=== PATIENT | male | born 1945 | race Caucasian/White ===

== ENCOUNTER 2019-05-13 16:49 | Emergency (ER) | payer OTHER, MEDICARE ==
[~2019-05-13] VITALS: Ht 180.3 cm; Wt 95.2 kg
[~2019-05-13 16:49] MED LIST: ASPI325; ASPI81EC PO; CEPH500 PO; FINA5 PO; LEVFLO500 PO; NITRO QUIK SL; RED YEAST RICE PO; UNKNOWN BP MED; [UNRECOGNIZED DRUG - CODE]
== END 2019-05-13 19:15 | disposition home or self-care (01) ==
LOC: ER 16:49
DX: S16.1XXA Strain of muscle, fascia and tendon at neck level, initial encounter (principal); S29.012A Strain of muscle and tendon of back wall of thorax, initial encounter; Z79.899 Other long term (current) drug therapy; Z79.82 Long term (current) use of aspirin; W11.XXXA Fall on and from ladder, initial encounter
CPT/HCPCS: 71046; 72040; 96374; 99283-25; J1885

== ENCOUNTER 2020-08-11 16:14 | Emergency (ER) | payer OTHER, MEDICARE ==
[~2020-08-11] VITALS: Ht 182.9 cm; Wt 95.2 kg
[2020-08-11 18:24] LABS: BASOPHILS ABSOLUTE AUTO 0.07 K/mm3 (0.00-0.23); BASOPHILS PERCENT AUTO 1 % (0-2); EOSINOPHILS PERCENT AUTO 1 % (0-6); Hematocrit 41.9 % (37.0-53.0); Hemoglobin 14.4 g/dL (13.5-17.5); IMMATURE GRAN ABSOLUTE AUTO 0.16 K/mm3 (0.00-0.10); IMMATURE GRAN PERCENT AUTO 1 % (0-1); LYMPHOCYTES ABSOLUTE AUTO 0.69 K/mm3 (0.84-5.20); LYMPHOCYTES PERCENT AUTO 5 % (21-46); MONOCYTES ABSOLUTE AUTO 0.81 K/mm3 (0.16-1.47); MONOCYTES PERCENT AUTO 6 % (4-13); Mean Corpuscular HGB 31.4 pg (26.0-34.0); Mean Corpuscular HGB Conc 34.4 g/dL (31.5-36.5); Mean Corpuscular Volume 91 fL (80-100); Mean Platelet Volume 10.2 fL (9.1-12.4); NEUTROPHILS ABSOLUTE AUTO 11.96 K/mm3 (1.96-9.15); NEUTROPHILS PERCENT AUTO 87 % (41-73); Platelet Count 217 K/mm3 (150-400); RDW Coefficient Variation 13.2 % (11.7-14.2); RDW Standard Deviation 43.8 fL (35.1-46.3); Red Blood Cell Count 4.59 M/mm3 (4.30-5.90); White Blood Cell Count 13.79 K/mm3 (4.00-11.30)
[2020-08-11 18:35] LABS: Source, Urine Clean Catch
[2020-08-11 18:38] LABS: International Normalized Ratio 0.98; Prothrombin Time Results 10.5 Sec (9.7-11.5)
[2020-08-11 18:42] LABS: Alanine Aminotransfer (ALT/SGP 50 U/L (12-78); Albumin, Blood 4.3 g/dL (3.4-5.0); Albumin/Globulin Ratio 1.3 (0.8-1.8); Alk Phos 125 U/L (50-136); Anion Gap 7 mmol/L (6-16); Aspartate Aminotrans (AST/SGOT 30 U/L (12-37); Bilirubin, Total 0.3 mg/dL (0.1-1.0); Blood Urea Nitrogen 26 mg/dL (8-24); Bun/Creatinine Ratio 18.2 (12.0-20.0); CO2, Blood 26 mmol/L (21-32); Chloride, Blood 106 mmol/L (98-108); Creatinine, Blood 1.43 mg/dL (0.60-1.20); Ethanol (Alcohol), Blood, Med <3 mg/dL; Globulin, Blood 3.4 g/dL (2.2-4.0); Glomerular Filtration Rate 51 (60-); Glucose, Blood 155 mg/dL (70-99); Potassium, Blood 4.2 mmol/L (3.5-5.5); Sodium, Blood 139 mmol/L (136-145); Total Protein, Blood 7.7 g/dL (6.4-8.2)
[2020-08-11 19:15] LABS: Appearance, Urine Clear (Clear); Bilirubin, Urine Neg (Neg); Blood, Urine Neg (Neg); Color, Urine Yellow (P-Yellow); Glucose Qualitative, Urine Neg (Neg); Ketones, Urine Neg (Neg); Leukocyte Esterase, Urine Neg (Neg); Nitrite, Urine Neg (Neg); Protein, Urine 1+ (Neg); Urobilinogen, Urine NORM (Normal)
[2020-08-11 19:29] LABS: U Amphetamine Screen Not Detected; U Barbituate Screen Not Detected; U Benzodiazapine Screen Not Detected; U Buprenorphine Screen Not Detected; U Cannabinoids Screen Not Detected; U Cocaine Screen Not Detected; U Methadone Screen Not Detected; U Methamphetamine Screen Not Detected; U Opiates Screen Not Detected; U Oxycodone Screen Not Detected; U Phencyclidine Screen Not Detected; U Propoxyphene Screen Not Detected
== END 2020-08-11 20:10 | disposition short-term general hospital (02) ==
LOC: ER 16:14
PROVIDERS: Emergency Medicine
DX: S06.4X0A Epidural hemorrhage without loss of consciousness, initial encounter (principal); S12.000A Unspecified displaced fracture of first cervical vertebra, initial encounter for closed fracture; S22.31XA Fracture of one rib, right side, initial encounter for closed fracture; F17.200 Nicotine dependence, unspecified, uncomplicated; W17.81XA Fall down embankment (hill), initial encounter
CPT/HCPCS: 36415; 70450; 71260; 72125; 74177; 80053; 83605; 83690; 85025; 85610; 85730; 86850; 86900; 86901; 96374; 96375; 99284-25; G0480; J1170; J3010; Q9967

== ENCOUNTER 2020-10-18 20:22 | Observation (INO) | payer OTHER ==
[~2020-10-18] VITALS: Ht 177.8 cm; Wt 86.0 kg
[2020-10-18 20:42] LABS: BASOPHILS ABSOLUTE AUTO 0.06 K/mm3 (0.00-0.23); BASOPHILS PERCENT AUTO 1 % (0-2); EOSINOPHILS ABSOLUTE AUTO 0.29 K/mm3 (0.00-0.68); EOSINOPHILS PERCENT AUTO 2 % (0-6); Hematocrit 41.8 % (37.0-53.0); Hemoglobin 13.5 g/dL (13.5-17.5); IMMATURE GRAN ABSOLUTE AUTO 0.07 K/mm3 (0.00-0.10); IMMATURE GRAN PERCENT AUTO 1 % (0-1); LYMPHOCYTES ABSOLUTE AUTO 0.88 K/mm3 (0.84-5.20); LYMPHOCYTES PERCENT AUTO 7 % (21-46); MONOCYTES ABSOLUTE AUTO 0.89 K/mm3 (0.16-1.47); MONOCYTES PERCENT AUTO 7 % (4-13); Mean Corpuscular HGB 30.2 pg (26.0-34.0); Mean Corpuscular HGB Conc 32.3 g/dL (31.5-36.5); Mean Corpuscular Volume 94 fL (80-100); NEUTROPHILS ABSOLUTE AUTO 10.19 K/mm3 (1.96-9.15); NEUTROPHILS PERCENT AUTO 82 % (41-73); Platelet Count 296 K/mm3 (150-400); RDW Coefficient Variation 13.9 % (11.7-14.2); RDW Standard Deviation 47.8 fL (35.1-46.3); Red Blood Cell Count 4.47 M/mm3 (4.30-5.90); White Blood Cell Count 12.38 K/mm3 (4.00-11.30)
[2020-10-18 21:15] LABS: Albumin, Blood 3.8 g/dL (3.4-5.0); Bilirubin, Total 0.3 mg/dL (0.1-1.0); Bun/Creatinine Ratio 14.6 (12.0-20.0); Calcium, Blood 9.2 mg/dL (8.5-10.1); Creatinine, Blood 1.57 mg/dL (0.60-1.20); Globulin, Blood 3.8 g/dL (2.2-4.0); Potassium, Blood 4.4 mmol/L (3.5-5.5); Total Protein, Blood 7.6 g/dL (6.4-8.2)
[2020-10-18 22:45] LABS: Source, Urine Clean Catch
[2020-10-18 22:48] LABS: Bilirubin, Urine Neg (Neg); Blood, Urine Neg (Neg); Glucose Qualitative, Urine Neg (Neg); Ketones, Urine Neg (Neg); Leukocyte Esterase, Urine 1+ (Neg); Nitrite, Urine Neg (Neg); Protein, Urine Neg (Neg); Specific Gravity, Urine 1.015 (1.003-1.022); Urobilinogen, Urine NORM (Normal)
[2020-10-18 22:57] LABS: U Amphetamine Screen Not Detected; U Barbituate Screen Not Detected; U Benzodiazapine Screen Not Detected; U Buprenorphine Screen Not Detected; U Cannabinoids Screen Not Detected; U Cocaine Screen Not Detected; U Methadone Screen Not Detected; U Methamphetamine Screen Not Detected; U Opiates Screen Not Detected; U Oxycodone Screen DETECTED; U Phencyclidine Screen Not Detected; U Propoxyphene Screen Not Detected
[2020-10-18 22:58] LABS: Appearance, Urine Clear (Clear); Color, Urine Yellow (P-Yellow)
[2020-10-18 22:59] LABS: Bacteria Not Seen /hpf; Red Blood Cells, Urine Not Seen /hpf (0-2); Squamous Epithelial Cells Not Seen /hpf (Few); White Blood Cells, Urine Rare /hpf (0-5)
--- NOTE | 2020-10-19 04:19 | NUR ---
SHIFT SUMMARY PT WAS NEW ER ADMIT THIS SHIFT (2319) REPORT REC FROM Amanda @ 2725, DID NOT ACCOMPANY PT TO ROOM, PT HAS BEEN NON VERBAL AND HAS ONLY BEEN ABLE TO ANSWER A FEW YES/NO QUESTIONS. MEDICATED 1X FOR PAIN (HEADACHE), PT APPEARED TO SLEEP COMFORTABLY AFTER ADMIN, SLEPT T/O THE NIGHT & SLEEPING AT THIS TIME, CALL LIGHT IN REACH, BED ALARM ACTIVE, WILL CONT TO MONITOR UNTIL REPORT GIVEN TO DAY RN.
[2020-10-19 05:03] LABS: BASOPHILS ABSOLUTE AUTO 0.03 K/mm3 (0.00-0.23); BASOPHILS PERCENT AUTO 0 % (0-2); EOSINOPHILS ABSOLUTE AUTO 0.25 K/mm3 (0.00-0.68); EOSINOPHILS PERCENT AUTO 3 % (0-6); Hematocrit 36.9 % (37.0-53.0); Hemoglobin 11.9 g/dL (13.5-17.5); IMMATURE GRAN ABSOLUTE AUTO 0.05 K/mm3 (0.00-0.10); IMMATURE GRAN PERCENT AUTO 1 % (0-1); LYMPHOCYTES ABSOLUTE AUTO 1.04 K/mm3 (0.84-5.20); LYMPHOCYTES PERCENT AUTO 13 % (21-46); MONOCYTES ABSOLUTE AUTO 0.64 K/mm3 (0.16-1.47); MONOCYTES PERCENT AUTO 8 % (4-13); Mean Corpuscular HGB 30.2 pg (26.0-34.0); Mean Corpuscular HGB Conc 32.2 g/dL (31.5-36.5); Mean Corpuscular Volume 94 fL (80-100); Mean Platelet Volume 10.1 fL (9.1-12.4); NEUTROPHILS ABSOLUTE AUTO 5.97 K/mm3 (1.96-9.15); NEUTROPHILS PERCENT AUTO 75 % (41-73); Platelet Count 232 K/mm3 (150-400); RDW Coefficient Variation 13.9 % (11.7-14.2); RDW Standard Deviation 46.9 fL (35.1-46.3); Red Blood Cell Count 3.94 M/mm3 (4.30-5.90); White Blood Cell Count 7.98 K/mm3 (4.00-11.30)
[2020-10-19 05:24] LABS: Albumin, Blood 3.1 g/dL (3.4-5.0); Bilirubin, Total 0.2 mg/dL (0.1-1.0); Bun/Creatinine Ratio 18.2 (12.0-20.0); Calcium, Blood 8.3 mg/dL (8.5-10.1); Creatinine, Blood 1.54 mg/dL (0.60-1.20); Globulin, Blood 3.1 g/dL (2.2-4.0); Potassium, Blood 3.9 mmol/L (3.5-5.5); Total Protein, Blood 6.2 g/dL (6.4-8.2)
[2020-10-19] MEDS ORDERED: FINA5 PO (11:03)
[2020-10-19] MEDS ORDERED: LISI20 PO (11:04)
[2020-10-19] MEDS ORDERED: METF500C PO (11:04)
[2020-10-19] MEDS ORDERED: GABA300 PO (11:04)
[2020-10-19] MEDS ORDERED: SPIRIVA RESPIMAT4 G3 INH (11:05)
[2020-10-19] MEDS ORDERED: SYMBICORT 160-4.6 GM INH (11:12)
[2020-10-19] MEDS ORDERED: OXYC5 PO (11:13)
[2020-10-19] MEDS ORDERED: ATOR80 PO (11:13)
[2020-10-19] MEDS ORDERED: ACET500 PO (11:13)
--- NOTE | 2020-10-19 16:53 | NUR ---
PATIENT A/OX3, BUT FORGETFUL AND REQUIRES REPETITIVE EXPLANATION AND INSTRUCTIONS. PAIN CONTROLLED WITH IV FENTANYL, FENTANYL PATCH PLACED THIS EVENING. LÓPEZ PULLED THIS AM AT 1030, PATIENT WAS UNABLE TO VOID. BLADDER SCANNED FOR 460ML'S AND STRAIGHT CATHED FOR 550 ML'S. PATIENT FINISHING UP NS, IV TO L FA WNL. PT/OT WORKED WITH PATIENT AND HE IS A 2 ASSIST WITH FWW AND GB. TOLERATING ADA DIET, NO BLOOD SUGARS. FALL PRECAUTIONS IN PLACE, PATIENT ABLE TO MAKE NEEDS KNOWN. PT/OT RECOMMENDING HOME HEALTH.
--- NOTE | 2020-10-20 04:23 | NUR ---
SHIFT SUMMARY ALERT, ABLE TO MAKE NEEDS KNOWN. COOPERATIVE WITH CARE. DIFFICULT TO RE-DIRECT AT TIMES. FORGETFUL. C/O PAIN/DISCOMFORT TO NECK; MEDICATED PER EMAR. DID NOT APPEAR TO REST AT ALL OVERNIGHT. UP WITH 2P ASSIST AND GB TO BSC. BLADDER SCANNED X1 REQUIRING STRAIGHT CATH WHICH YEILDED 600 ML. WILL BLADDER SCAN ONCE MORE BEFORE END OF SHIFT. COARSE LS TO LLL WITH WET NON-PRODUCTIVE COUGH NOTED. TELE RUNNING SR 81 PER DE ALCHOLIZER. NO ACUTE CHANGES NOTED OVERNIGHT. BED REMAINED IN LOWEST POSITION; ALARM ON. CALL LIGHT WITHIN REACH. CONTINUE WITH CURRENT PLAN OF CARE. REPORT TO ONCOMING RN.
[2020-10-20 05:19] LABS: Anion Gap 7 mmol/L (6-16); Blood Urea Nitrogen 21 mg/dL (8-24); Bun/Creatinine Ratio 19.8 (12.0-20.0); CO2, Blood 26 mmol/L (21-32); Calcium, Blood 8.9 mg/dL (8.5-10.1); Chloride, Blood 109 mmol/L (98-108); Creatinine, Blood 1.06 mg/dL (0.60-1.20); Glomerular Filtration Rate >60 (60-); Glucose, Blood 118 mg/dL (70-99); Potassium, Blood 3.8 mmol/L (3.5-5.5); Sodium, Blood 142 mmol/L (136-145)
[2020-10-20] MEDS ORDERED: FENTANYL1 EAC7 TOP (13:02)
[2020-10-20] MEDS ORDERED: SENN187 PO (13:03)
[2020-10-20] MEDS ORDERED: MIRALAX17 GM PO (13:03)
[2020-10-20] MEDS ORDERED: DOCU100 PO (13:03)
--- NOTE | 2020-10-20 16:05 | NUR ---
PATIENT DISCHARGE: PATIENT DISCHARGED TO HOME / XFR TO HOME HEALTH THIS SHIFT. MEDICATION RECONCILIATION COMPLETED; MED LIST FAXED TO [facility]; HARD SCRIPT PROVIDED FOR CONTROLLED SUBSTANCE. DISCHARGE EDUCATION COMPLETED WITH PATIENT AND FAMILY; PATIENT DISCHARGED WITH LÓPEZ IN PLACE. PATIENT TRANSPORTED TO EXIT BY [facility] STA[facility] WITH WHEELCHAIR AT 1603. PATIENT DEPARTED [facility] VIA PRIVATE AUTO.
== END 2020-10-20 16:03 | disposition home health service (06) ==
LOC: ER 20:22 → MEDS 22:03
PROVIDERS: Emergency Medicine; Internal Medicine; ADMIT Internal Medicine
DX: G93.40 Encephalopathy, unspecified (principal); M54.2 Cervicalgia; F03.90 Unspecified dementia, unspecified severity, without behavioral disturbance, psychotic disturbance, mood disturbance, and anxiety; R09.02 Hypoxemia; J44.9 Chronic obstructive pulmonary disease, unspecified; I10 Essential (primary) hypertension; N40.1 Benign prostatic hyperplasia with lower urinary tract symptoms; R33.8 Other retention of urine; F17.200 Nicotine dependence, unspecified, uncomplicated; Z91.81 History of falling
CPT/HCPCS: 36415; 51702; 51798; 70450; 71045; 72125; 80048; 80053; 81001; 85025; 93005; 93010; 96372; 96374; 96376; 97116; 97162; 97166; 97530; 97535; 99285-25; A9270; G0378; J1650; J3010; J7030

== ENCOUNTER 2023-07-22 12:07 | Emergency (ER) | payer OTHER ==
[~2023-07-22] VITALS: Ht 180.3 cm; Wt 83.5 kg
[~2023-07-22 12:07] MED LIST changes: +ACET500 PO; +ATOR80 PO; +BUPR150ER PO; +DOCU100 PO; +FENTANYL1 EAC7 TOP; +GABA300 PO; +LISI20 PO; +METFORMIN500 MG/51 PO; +MIRALAX17 GM PO; +OXYC5 PO; +SENN187 PO; +SPIRIVA RESPIMAT4 G3 INH; +SYMBICORT 160-4.6 GM INH
[2023-07-22] MEDS ORDERED: B-12500 MC2 PO (12:29)
[2023-07-22] MEDS ORDERED: ZESTORETIC 20-1 EACH PO (12:29)
[2023-07-22] MEDS ORDERED: Aspir 8181 MG PO (12:31)
[2023-07-22 13:11] LABS: BASOPHILS ABSOLUTE AUTO 0.05 K/mm3 (0.00-0.23); BASOPHILS PERCENT AUTO 1 % (0-2); EOSINOPHILS ABSOLUTE AUTO 0.12 K/mm3 (0.00-0.68); EOSINOPHILS PERCENT AUTO 1 % (0-6); Hematocrit 41.4 % (37.0-53.0); Hemoglobin 13.7 g/dL (13.5-17.5); IMMATURE GRAN ABSOLUTE AUTO 0.04 K/mm3 (0.00-0.10); IMMATURE GRAN PERCENT AUTO 0 % (0-1); LYMPHOCYTES ABSOLUTE AUTO 0.94 K/mm3 (0.84-5.20); LYMPHOCYTES PERCENT AUTO 9 % (21-46); MONOCYTES PERCENT AUTO 6 % (4-13); Mean Corpuscular HGB 30.8 pg (26.0-34.0); Mean Corpuscular HGB Conc 33.1 g/dL (31.5-36.5); Mean Corpuscular Volume 93 fL (80-100); Mean Platelet Volume 10.7 fL (9.1-12.4); NEUTROPHILS ABSOLUTE AUTO 8.63 K/mm3 (1.96-9.15); NEUTROPHILS PERCENT AUTO 83 % (41-73); Platelet Count 221 K/mm3 (150-400); RDW Coefficient Variation 12.6 % (11.7-14.2); RDW Standard Deviation 43.3 fL (35.1-46.3); Red Blood Cell Count 4.45 M/mm3 (4.30-5.90); White Blood Cell Count 10.38 K/mm3 (4.00-11.30)
[2023-07-22 13:40] LABS: Albumin/Globulin Ratio 1.3 (0.8-1.8); Bilirubin, Total 0.3 mg/dL (0.1-1.0); Bun/Creatinine Ratio 18.4 (12.0-20.0); Calcium, Blood 8.9 mg/dL (8.5-10.1); Creatinine, Blood 1.25 mg/dL (0.60-1.20)
[2023-07-22 15:30] VITALS: BP 173/76
== END 2023-07-22 16:18 | disposition home or self-care (01) ==
LOC: ER 12:07
PROVIDERS: Emergency Medicine
DX: S01.01XA Laceration without foreign body of scalp, initial encounter (principal); Z91.81 History of falling; F17.210 Nicotine dependence, cigarettes, uncomplicated; Z79.84 Long term (current) use of oral hypoglycemic drugs; Z79.82 Long term (current) use of aspirin; Z79.891 Long term (current) use of opiate analgesic; Z79.899 Other long term (current) drug therapy; W18.2XXA Fall in (into) shower or empty bathtub, initial encounter; Y92.002 Bathroom of unspecified non-institutional (private) residence as the place of occurrence of the external cause; Y93.89 Activity, other specified
CPT/HCPCS: 12015; 51701; 70450; 72125; 80053; 83880; 84484; 85025; 99284-25

== ENCOUNTER 2024-01-23 18:44 | Inpatient (IN) | payer OTHER ==
[~2024-01-23] VITALS: Ht 172.7 cm; Wt 75.5 kg
[~2024-01-23 18:44] MED LIST changes: +Aspir 8181 MG PO; +B-12500 MC2 PO; +ZESTORETIC 20-1 EACH PO
[2024-01-23 19:18] LABS: BASOPHILS ABSOLUTE AUTO 0.03 K/mm3 (0.00-0.23); BASOPHILS PERCENT AUTO 0 % (0-2); EOSINOPHILS PERCENT AUTO 1 % (0-6); Hematocrit 40.5 % (37.0-53.0); Hemoglobin 13.6 g/dL (13.5-17.5); IMMATURE GRAN ABSOLUTE AUTO 0.03 K/mm3 (0.00-0.10); IMMATURE GRAN PERCENT AUTO 0 % (0-1); LYMPHOCYTES ABSOLUTE AUTO 0.21 K/mm3 (0.84-5.20); LYMPHOCYTES PERCENT AUTO 2 % (21-46); MONOCYTES ABSOLUTE AUTO 0.69 K/mm3 (0.16-1.47); MONOCYTES PERCENT AUTO 7 % (4-13); Mean Corpuscular HGB 30.8 pg (26.0-34.0); Mean Corpuscular HGB Conc 33.6 g/dL (31.5-36.5); Mean Corpuscular Volume 92 fL (80-100); Mean Platelet Volume 10.6 fL (9.1-12.4); NEUTROPHILS ABSOLUTE AUTO 8.82 K/mm3 (1.96-9.15); NEUTROPHILS PERCENT AUTO 89 % (41-73); Platelet Count 218 K/mm3 (150-400); RDW Coefficient Variation 12.5 % (11.7-14.2); RDW Standard Deviation 42.2 fL (35.1-46.3); Red Blood Cell Count 4.41 M/mm3 (4.30-5.90); White Blood Cell Count 9.88 K/mm3 (4.00-11.30)
[2024-01-23 19:44] LABS: Albumin, Blood 3.7 g/dL (3.4-5.0); Albumin/Globulin Ratio 1.2 (0.8-1.8); Bilirubin, Total 0.4 mg/dL (0.1-1.0); Bun/Creatinine Ratio 16.1 (12.0-20.0); Creatinine, Blood 1.43 mg/dL (0.60-1.20); Globulin, Blood 3.2 g/dL (2.2-4.0); Magnesium, Blood 2.2 mg/dL (1.6-2.4); Potassium, Blood 4.1 mmol/L (3.5-5.5); Total Protein, Blood 6.9 g/dL (6.4-8.2)
[2024-01-23] MEDS ORDERED: NS 1,000 ML IV SCH (21:30)
[2024-01-23 22:30] LABS: Source, Urine Clean Catch
[2024-01-23 22:38] LABS: Bilirubin, Urine Neg (Neg); Blood, Urine 2+ (Neg); Glucose Qualitative, Urine Neg (Neg); Ketones, Urine Neg (Neg); Leukocyte Esterase, Urine 3+ (Neg); Nitrite, Urine Pos (Neg); Protein, Urine Neg (Neg); Specific Gravity, Urine 1.015 (1.003-1.022); Urobilinogen, Urine NORM (Normal)
[2024-01-23 22:39] LABS: Appearance, Urine Hazy (Clear); Color, Urine Yellow (P-Yellow)
[2024-01-23 22:46] LABS: Bacteria Many /hpf; Red Blood Cells, Urine 0-2 /hpf (0-2); Squamous Epithelial Cells Rare /hpf (Few); White Blood Cells, Urine TNTC /hpf (0-5)
[2024-01-23] MEDS ORDERED: Acetaminophen 500 MG Tab PO ONE (22:55)
[2024-01-23] MEDS ORDERED: CefTRIAXone Sodium 1,000 MG in NS 100 ML IV ONE (23:10)
[2024-01-24] MEDS ORDERED: Bisacodyl 10 MG Supp PR PRN (01:05)
[2024-01-24] MEDS ORDERED: Magnesium Hydroxide Conc 10 ML UDC PO PRN (01:05)
[2024-01-24] MEDS ORDERED: Acetaminophen 325 MG TABLET PO PRN (01:05)
[2024-01-24] MEDS ORDERED: Remdesivir (EUA) 200 MG in NS 250 ML IV ONE (02:00)
[2024-01-24 03:13] VITALS: BP 94/46
[2024-01-24] MEDS ORDERED: OxyCODONE HCL 5 MG TAB PO PRN (03:20)
[2024-01-24] MEDS ORDERED: Tiotropium Bromide 2.5 MCG/ACT MIST INHAL (10 ACT/4 GM) INH SCH (03:20)
[2024-01-24] MEDS ORDERED: Lactated Ringer's 1,000 ML IV ONE (03:23)
[2024-01-24] MEDS ORDERED: Lactated Ringer's 1,000 ML IV SCH (03:30)
[2024-01-24] MEDS ORDERED: Acetaminophen 650 MG Supp PR PRN (03:35)
[2024-01-24] MEDS ORDERED: Mometasone/Formoterol MDI 200/5 mcg 13 GM INH SCH (03:50)
[2024-01-24] MEDS ORDERED: Ipratropium/Albuterol SulF 2.5-0.5MG/3 ML Amp INH PRN (04:25)
[2024-01-24] MEDS ORDERED: Albuterol HFA200 ACT/6.7 GM INH INH PRN (04:35)
[2024-01-24 05:18] LABS: BASOPHILS ABSOLUTE AUTO 0.02 K/mm3 (0.00-0.23); BASOPHILS PERCENT AUTO 0 % (0-2); EOSINOPHILS ABSOLUTE AUTO 0.03 K/mm3 (0.00-0.68); EOSINOPHILS PERCENT AUTO 1 % (0-6); Hematocrit 34.7 % (37.0-53.0); Hemoglobin 11.5 g/dL (13.5-17.5); IMMATURE GRAN ABSOLUTE AUTO 0.03 K/mm3 (0.00-0.10); IMMATURE GRAN PERCENT AUTO 1 % (0-1); LYMPHOCYTES ABSOLUTE AUTO 0.33 K/mm3 (0.84-5.20); LYMPHOCYTES PERCENT AUTO 6 % (21-46); MONOCYTES ABSOLUTE AUTO 0.87 K/mm3 (0.16-1.47); MONOCYTES PERCENT AUTO 15 % (4-13); Mean Corpuscular HGB 30.4 pg (26.0-34.0); Mean Corpuscular HGB Conc 33.1 g/dL (31.5-36.5); Mean Corpuscular Volume 92 fL (80-100); Mean Platelet Volume 10.2 fL (9.1-12.4); NEUTROPHILS PERCENT AUTO 78 % (41-73); Platelet Count 192 K/mm3 (150-400); RDW Coefficient Variation 12.9 % (11.7-14.2); RDW Standard Deviation 42.9 fL (35.1-46.3); Red Blood Cell Count 3.78 M/mm3 (4.30-5.90); White Blood Cell Count 5.88 K/mm3 (4.00-11.30)
[2024-01-24 05:51] LABS: Anion Gap 14 mmol/L (3-11); Blood Urea Nitrogen 26 mg/dL (8-24); Bun/Creatinine Ratio 16.5 (12.0-20.0); CO2, Blood 22 mmol/L (21-32); Calcium, Blood 8.2 mg/dL (8.5-10.1); Chloride, Blood 110 mmol/L (98-108); Creatinine, Blood 1.58 mg/dL (0.60-1.20); Glomerular Filtration Rate 44 (60-); Glucose, Blood 139 mg/dL (70-99); Phosphorus, Blood 3.6 mg/dL (2.5-4.9); Sodium, Blood 142 mmol/L (136-145)
[2024-01-24] MEDS ORDERED: Insulin Human Lispro 100 Units/ML 3ML Syringe SC SCH (07:30)
[2024-01-24 07:35] VITALS: BP 114/48
[2024-01-24] MEDS ORDERED: Sennosides 8.6 MG Tab PO SCH (09:00)
[2024-01-24] MEDS ORDERED: buPROPion HCL 150 MG TAB.SR.12H PO SCH (09:00)
[2024-01-24] MEDS ORDERED: Aspirin 81 MG TabEC PO SCH (09:00)
[2024-01-24] MEDS ORDERED: Cyanocobalamin 500 MCG Tab PO SCH (09:00)
[2024-01-24] MEDS ORDERED: HydroCHLOROthiazide 25 mg Tab PO SCH (09:00)
[2024-01-24] MEDS ORDERED: Atorvastatin 40 MG Tab PO SCH (09:00)
[2024-01-24] MEDS ORDERED: Lisinopril 20 MG Tab PO SCH (09:00)
[2024-01-24] MEDS ORDERED: Finasteride 5 MG Tab PO SCH (09:00)
[2024-01-24] MEDS ORDERED: Docusate Sodium 100 MG Cap PO SCH (09:00)
[2024-01-24] MEDS ORDERED: Lactobacil 2-S.Thermo-Bifido 1 1 Cap PO SCH (09:00)
[2024-01-24] MEDS ORDERED: Enoxaparin 40 MG/0.4 ML SYR SC SCH (09:00)
[2024-01-24 09:55] LABS: Influenza A, PCR NEGATIVE (NEGATIVE); Influenza B, PCR NEGATIVE (NEGATIVE); Resp Syncytial Virus, PCR NEGATIVE (NEGATIVE); SARS-Cov-2 (COVID-19) PCR, MMC POSITIVE (NEGATIVE)
[2024-01-24 11:27] LABS: Source, Urine Foley catheter
[2024-01-24 12:20] LABS: Appearance, Urine Cloudy (Clear); Bilirubin, Urine Neg (Neg); Blood, Urine 3+ (Neg); Color, Urine Yellow (P-Yellow); Glucose Qualitative, Urine Neg (Neg); Ketones, Urine Neg (Neg); Leukocyte Esterase, Urine 3+ (Neg); Nitrite, Urine Neg (Neg); Protein, Urine 1+ (Neg); Specific Gravity, Urine 1.015 (1.003-1.022); Urobilinogen, Urine NORM (Normal)
[2024-01-24 12:42] LABS: White Blood Cells, Urine 50-100 /hpf (0-5)
[2024-01-24 12:45] LABS: Bacteria Many /hpf; Squamous Epithelial Cells Rare /hpf (Few); Yeast/Fungi Urine Rare /hpf
[2024-01-24 12:46] LABS: Transitional Epithelial Cells Rare /hpf (0-Rare)
[2024-01-24] MEDS ORDERED: BUPRENORPHINE1 EAC7 TD (12:52)
[2024-01-24] MEDS ORDERED: ADULT TUSS100 MG/51 PO (12:54)
[2024-01-24 15:13] VITALS: BP 106/49
--- NOTE | 2024-01-24 17:52 | NUR ---
SHIFT SUMMARY: PATIENT ALERT AND NOT ABLE TO TEST THE ORIENTATION D/T NONVERBAL. PATIENT HAD A MAX TEMP OF 100.4 AT BEGINNING OF SHIFT, BUT RESSOLVED. BP SOFT, BUT STABLE. PATIENT HAS DRY NON PRODUCTIVE COUGH, RA, SATTING 93-95%. PER PATIENT BROTHER NAME KRYSTAL, "MY BROTHER HAS CHRONIC ISSUES HE HAS NOT BEEN ABLE TO PEE ON HIS OWN AND HE HAS BEEN DOING SELF CATHETERIZATION AT HOME FOR QUITE SOMETIME." BLADDER SCAN WERE PERFORMED THIS AM, 465 MLS APPEARS IN BLADDER, NOTIFIED DR. GALVEZ, RECEIVED ORDER TO PLACED LÓPEZ. 16 FR LÓPEZ PLACED FOR RETENTION, PATENT DRAINING CLOUDY YELLOW URINE c MOD SEDIMENTS. PATIENT RECEIVED BEDBATH, LINEN CHANGED AND REPOSITIONED T/O SHIFT. PATIENT BUE'S CONTRACTURES, 1:1 FEEDER. PATIENT FAMILY IN ROOM ON/OFF T/O SHIFT. PATIENT ON ENHANCED ISOLATION FOR COVID POSITIVE. CALL LIGHT IN REACH.
[2024-01-24 20:04] VITALS: BP 117/51
[2024-01-24] MEDS ORDERED: NS 250 ML IV PRN (20:30)
[2024-01-24] MEDS ORDERED: CefTRIAXone Sodium 1,000 MG in NS 100 ML IV SCH (21:00)
[2024-01-25 03:14] VITALS: BP 110/46
[2024-01-25 05:27] LABS: BASOPHILS ABSOLUTE AUTO 0.02 K/mm3 (0.00-0.23); BASOPHILS PERCENT AUTO 0 % (0-2); EOSINOPHILS PERCENT AUTO 0 % (0-6); Hematocrit 37.4 % (37.0-53.0); Hemoglobin 12.4 g/dL (13.5-17.5); IMMATURE GRAN ABSOLUTE AUTO 0.02 K/mm3 (0.00-0.10); IMMATURE GRAN PERCENT AUTO 0 % (0-1); LYMPHOCYTES ABSOLUTE AUTO 0.71 K/mm3 (0.84-5.20); LYMPHOCYTES PERCENT AUTO 12 % (21-46); MONOCYTES ABSOLUTE AUTO 1.03 K/mm3 (0.16-1.47); MONOCYTES PERCENT AUTO 18 % (4-13); Mean Corpuscular HGB 31.2 pg (26.0-34.0); Mean Corpuscular HGB Conc 33.2 g/dL (31.5-36.5); Mean Corpuscular Volume 94 fL (80-100); Mean Platelet Volume 10.7 fL (9.1-12.4); NEUTROPHILS ABSOLUTE AUTO 3.98 K/mm3 (1.96-9.15); NEUTROPHILS PERCENT AUTO 69 % (41-73); Platelet Count 151 K/mm3 (150-400); RDW Coefficient Variation 12.9 % (11.7-14.2); RDW Standard Deviation 44.8 fL (35.1-46.3); Red Blood Cell Count 3.97 M/mm3 (4.30-5.90); White Blood Cell Count 5.76 K/mm3 (4.00-11.30)
[2024-01-25 06:04] LABS: Albumin/Globulin Ratio 0.9 (0.8-1.8); Bilirubin, Total 0.2 mg/dL (0.1-1.0); Bun/Creatinine Ratio 17.2 (12.0-20.0); Calcium, Blood 8.4 mg/dL (8.5-10.1); Creatinine, Blood 1.45 mg/dL (0.60-1.20); Globulin, Blood 3.2 g/dL (2.2-4.0); Potassium, Blood 3.7 mmol/L (3.5-5.5); Total Protein, Blood 6.2 g/dL (6.4-8.2)
[2024-01-25 07:28] VITALS: BP 119/46
[2024-01-25] MEDS ORDERED: FentaNYL 50 MCG Patch TOP SCH (09:00)
[2024-01-25] MEDS ORDERED: NS 1,000 ML IV SCH (11:05)
[2024-01-25] MEDS ORDERED: Remdesivir (EUA) 100 MG in NS 250 ML IV SCH (12:00)
[2024-01-25 15:30] VITALS: BP 101/47
--- NOTE | 2024-01-25 18:24 | NUR ---
SHIFT SUMMARY PT AWAKE T/O SHIFT, ORIENTED TO SELF HOWEVER PT IS CURRENTLY NONVERBAL AND UNABLE TO ASSESS. FAMILY AT BEDSIDE AND HELPED ASNWERING QUESTIONS AND DETERMINING BASELINE. DENIED ANY PAIN T/O SHIFT. LUNG SOUNDS DIM IN THE BASES. SPEECH CHANGED DIET TO MINCED AND MOIST AND NECTAR THICK LIQUIDS. MEDS CRUSHED IN APPLESAUCE, TOLERATES SMALL BITES. HX OF ASPIRATION. BEDREST AND TURNED Q2. LÓPEZ IN PLACE AND INTACT. OFFERED WATER WITH EVERY ROUND. NO ACUTE EVENTS THIS SHIFT. CURRENLTY WATCHING TV. BED IN THE LOWEST POSITION. CALL LIGHT WITHIN REACH.
[2024-01-25 20:13] VITALS: BP 121/49
[2024-01-26 03:06] VITALS: BP 116/53
--- NOTE | 2024-01-26 06:09 | NUR ---
Shift Summary Pt's lungs were very coarse at the start of the shift. When asked to cough pt did a weak cough, not strong enough to remove secretions from the airway. RT assessed pt and we both thought he would benefit from suction. I called the hospitalist who put in the order. RT attempted nasal suction but was unable to fully advance the catheter through the nose. RT was able to remove some secretions by going in through the mouth. Pt was awake for most of the night. He answered most questions with a yes or no. He stated no pain or discomfort. He rcvd NS @ 100 t/o the shift. Brown in place and patent draining.
[2024-01-26 08:30] VITALS: BP 115/47
[2024-01-26 15:26] VITALS: BP 90/49
[2024-01-26 16:15] VITALS: BP 95/46
--- NOTE | 2024-01-26 18:32 | NUR ---
PATIENT INTERACTION IMPROVED, PATIENT MAKING WHOLE SENTENCES TO INTERACT WITH STAFF, MARIBEL OLIVA/ALLA, BS WNL NO INSULIN COVERAGE GIEVN TODAY, HYPOTENSIVE THIS AFTERNOON, BP WNL FOR PATIENTS TRENDS, REPOSITIONED THROUGH OUT THE DAY, FAMILY HELPFUL WITH CARE, COVID ISOLATION, CALL LIGHT WITH IN REACH, WILL RLEAY TO PM RN
[2024-01-26 19:59] VITALS: BP 109/49
[2024-01-27 04:04] VITALS: BP 102/45
--- NOTE | 2024-01-27 06:10 | NUR ---
Shift Summary Pt able to communicate better tonight with short sentences and more frequent yes/no answers. He had a medium sized incontinent BM tonight after being constipated for some days. His lung sounds are coarse and he refused offers of suction. He was educated on risks for pnumonia as he is not able to effectively clear is own airway. No c/o of pain or nausea. Pt slept well t/o most of the night.
[2024-01-27 07:23] VITALS: BP 101/46
[2024-01-27 14:41] LABS: Free Thyroxine 0.81 ng/dL (0.70-1.60)
[2024-01-27 14:43] LABS: Thyroid Stimulating Hormone 3.3 uIU/mL (0.360-4.800)
[2024-01-27 15:47] VITALS: BP 115/49
--- NOTE | 2024-01-27 17:46 | NUR ---
SHIFT SUMMARY PT AOX1, NON VERBAL MOST OF THE TIME. MOSTLY GRUNTS BUT CAN STATE HIS BIRTHDAY AND SAY "YES" OR "NO" AT TIMES. INCONTINENT, TWO SMALL BM'S THIS SHIFT. LÓPEZ CATHETER DRAINING TO GRAVITY. FAMILY AT THE BS T/O THE SHIFT. NO COMPLAINTS BY THE PT. BR AT THIS TIME. SEE NEW SPEECH THERAPY RECOMMENDATIONS. REPOSITIONS Q2 THROUGHOUT THE SHIFT. PLAN IS FOR HIM TO DC HOME TOMORROW. FAMILY AWARE. CALL LIGHT WITHIN REACH, BED LOCKED AND IN THE LOWEST POSITION. WILL REPORT TO ONCOMING NURSE.
[2024-01-27 20:19] VITALS: BP 102/65
[2024-01-28 04:39] VITALS: BP 130/51
--- NOTE | 2024-01-28 05:46 | NUR ---
NOTES PT ALERT, APPEARS TO BE ORIENTED X1-2; ALTHOUGH THIS IN UNABLE TO FULLY BE ASSESSED D/T PT NOT ALWAYS WANTING TO ANSWER QUESTIONS. PT SILENT AT TIMES, GRUNTS OR SHAKES HEAD YES/NO OFTEN. PT DOES ALSO ANSWER QUESTIONS AT TIMES. PT FOLLOWS COMMANDS. VSS; SBP 102 - 130, HR IN 70'S, AFEBRILE. PT REMAINS ON RA, WITH SPO2 97%. PT WITH WET COUGH; PT WITH WEAK COUGH BUT IS ABLE TO CLEAR SECRETIONS AT THIS TIME. SUCTION IN PLACE TO WALL AND AT BEDSIDE. PT EDUCATED ON USE IF NEEDED. ORAL CARE COMPLETE X1. NO ACUTE EVENTS. ABX AND IVF PER EMAR. PT REPOSITIONED Q2 OR PRN. ATTENDS IN PLACE, PT WITH BM X1 THAT WAS LARGE AND LOOSE, LIQUID, LIGHT BROWN IN COLOR. CATHETER IN PLACE AND DRAINING TO GRAVITY WITH 1800 MLS UOP. PT NOT TAKING MUCH PO INTAKE, NOT ASKING FOR WATER AND DECLINING WHEN OFFERED. PT WITH BLANCHABLE REDNESS TO COCCYX, BARRIER CREAM APPLIED AND REPOSITIONING. CALL LIGHT IN REACH AND ROUNDING TO ENSURE SAFETY. WILL UPDATE ONCOMING RN.
[2024-01-28 07:38] VITALS: BP 112/53
[2024-01-28] MEDS ORDERED: CEFP200 PO (14:30)
[2024-01-28 14:40] VITALS: BP 113/50
--- NOTE | 2024-01-28 15:39 | NUR ---
DISCHARGE NOTE PT A&OX2, 2 PERSON ASSIST TO PIVOT FROM BED TO WHEELCHAIR. PT HAS LÓPEZ CATHETER IN PLACE. DISCHARGE PAPERWORK SENT WITH PT. PT WHEELED OUT BY WHEELCHAIR WITH BELONGINGS OUT BY SCHEDULED TRANSPORT.
== END 2024-01-28 15:39 | disposition home health service (06) | DRG 871 ==
LOC: ER 18:44 → MEDS 18:45 → ER 18:45 → MEDS 01-24 02:51
PROVIDERS: Emergency Medicine; Family Medicine; Hospitalist; Internal Medicine; ADMIT Student in an Organized Health Care Education/Training Program
PROC: 0T9B70Z Drainage of Bladder with Drainage Device, Via Natural or Artificial Opening (ICD-10-PCS; principal; 2024-01-24)
PROC: 3E03329 Introduction of Other Anti-infective into Peripheral Vein, Percutaneous Approach (ICD-10-PCS; 2024-01-24)
PROC: XW033E5 Introduction of Remdesivir Anti-infective into Peripheral Vein, Percutaneous Approach, New Technology Group 5 (ICD-10-PCS; 2024-01-24)
DX: A41.89 Other specified sepsis (principal); G92.8 Other toxic encephalopathy; U07.1 COVID-19; N39.0 Urinary tract infection, site not specified; E87.20 Acidosis, unspecified; G31.83 Neurocognitive disorder with Lewy bodies; F02.80 Dementia in other diseases classified elsewhere, unspecified severity, without behavioral disturbance, psychotic disturbance, mood disturbance, and anxiety; Z66 Do not resuscitate; R65.20 Severe sepsis without septic shock; J44.9 Chronic obstructive pulmonary disease, unspecified; N18.30 Chronic kidney disease, stage 3 unspecified; I12.9 Hypertensive chronic kidney disease with stage 1 through stage 4 chronic kidney disease, or unspecified chronic kidney disease; N40.0 Benign prostatic hyperplasia without lower urinary tract symptoms; K21.9 Gastro-esophageal reflux disease without esophagitis; E78.5 Hyperlipidemia, unspecified; F32.A Depression, unspecified; E11.40 Type 2 diabetes mellitus with diabetic neuropathy, unspecified; M19.90 Unspecified osteoarthritis, unspecified site; F17.210 Nicotine dependence, cigarettes, uncomplicated; I25.10 Atherosclerotic heart disease of native coronary artery without angina pectoris; E11.22 Type 2 diabetes mellitus with diabetic chronic kidney disease; E03.9 Hypothyroidism, unspecified; Z98.890 Other specified postprocedural states; Z79.84 Long term (current) use of oral hypoglycemic drugs; Z88.8 Allergy status to other drugs, medicaments and biological substances; Z79.899 Other long term (current) drug therapy; Z79.82 Long term (current) use of aspirin; Z79.891 Long term (current) use of opiate analgesic
CPT/HCPCS: 0241U; 36415; 51702; 71045; 80053; 80069; 81001; 82947; 83605; 83735; 84145; 84439; 84443; 85025; 87040; 87077; 87086; 87186; 92526; 92610; 94640; 94664; 94760; 96361; 96372; 96374; 99285-25; A9270; G0378; J0248; J0696; J1650; J7030; J7050; J7120

== ENCOUNTER 2024-02-15 15:29 | Emergency (ER) | payer OTHER ==
[~2024-02-15] VITALS: Ht 170.2 cm; Wt 72.6 kg
[~2024-02-15 15:29] MED LIST changes: +ADULT TUSS100 MG/51 PO; +BUPRENORPHINE1 EAC7 TD; +CEFP200 PO
[2024-02-15 16:00] VITALS: BP 119/63
--- NOTE | 2024-02-15 16:43 | NUR ---
Met with pt and at bedside. reports the patient's health has been deteriorating since he discharged home from the hosptial last month after a positive Covid test, UTI, and Lewy Body Dementia. The patient wears a continuous neckbrace due to an old neck fracture that requires ongoing stabilization. He is currently lying on his back, not responding to questions or other verbal stimuli. His breathing is noisy and moist. Given the pt's baseline Lewy Body Dementia, increasing falls, lack of appetite, weight loss, lung sounds and decreased LOC, he is a food candidate for hospice. PLAN: [facility] for now, with possible plans to discharge pt home with . Will discuss further with CM tomorrow.
[2024-02-15] MEDS ORDERED: Morphine Sulfate 10 MG/ML 1MLSYR IV PRN (16:50)
[2024-02-15] MEDS ORDERED: LORazepam 1 MG Tab PO PRN (16:50)
[2024-02-15] MEDS ORDERED: Atropine Sulfate 1% Opth Soln 2ML BTL SL PRN (16:50)
[2024-02-15] MEDS ORDERED: LORazepam 2 MG/ML 1ML Injection IV PRN ×2 (16:50→18:10)
[2024-02-15] MEDS ORDERED: Scopolamine Hydrobromide Patch TOP PRN (16:50)
[2024-02-15] MEDS ORDERED: Morphine Sulfate 20 MG/1ML 1 ML Oral Syringe SL PRN (16:50)
== END 2024-02-15 22:17 ==
LOC: ER 15:29
DX: R06.09 Other forms of dyspnea (principal); R53.1 Weakness; I25.10 Atherosclerotic heart disease of native coronary artery without angina pectoris; I12.9 Hypertensive chronic kidney disease with stage 1 through stage 4 chronic kidney disease, or unspecified chronic kidney disease; E11.22 Type 2 diabetes mellitus with diabetic chronic kidney disease; N18.30 Chronic kidney disease, stage 3 unspecified; I71.40 Abdominal aortic aneurysm, without rupture, unspecified; G31.83 Neurocognitive disorder with Lewy bodies; F02.80 Dementia in other diseases classified elsewhere, unspecified severity, without behavioral disturbance, psychotic disturbance, mood disturbance, and anxiety; J44.9 Chronic obstructive pulmonary disease, unspecified; E11.42 Type 2 diabetes mellitus with diabetic polyneuropathy; E03.9 Hypothyroidism, unspecified; E78.5 Hyperlipidemia, unspecified; N40.1 Benign prostatic hyperplasia with lower urinary tract symptoms; R33.8 Other retention of urine; K21.9 Gastro-esophageal reflux disease without esophagitis; F17.210 Nicotine dependence, cigarettes, uncomplicated; Z66 Do not resuscitate; Z51.5 Encounter for palliative care; Z88.8 Allergy status to other drugs, medicaments and biological substances; Z79.82 Long term (current) use of aspirin; Z79.899 Other long term (current) drug therapy
CPT/HCPCS: 99285; A9270; G0378